=== PATIENT | female | born 1990 | race African-American/Black ===

== ENCOUNTER 2016-05-07 18:25 | Emergency (ER) | payer OTHER ==
[~2016-05-07] VITALS: Ht 157.5 cm; Wt 65.0 kg
[2016-05-07 18:26] VITALS: BP 122/79; PULSE 105; RESP 16; TEMP 100; O2SAT 100
== END 2016-05-07 21:10 | disposition left against medical advice (07) ==
LOC: NED 18:25
DX: R53.1 Weakness (principal); Z53.21 Procedure and treatment not carried out due to patient leaving prior to being seen by health care provider
CPT/HCPCS: 99281

== ENCOUNTER 2016-10-27 15:32 | Emergency (ER) | payer OTHER ==
[~2016-10-27] VITALS: Ht 177.8 cm; Wt 59.0 kg
[2016-10-27 15:34] VITALS: BP 160/85; PULSE 112; RESP 17; TEMP 98.6; O2SAT 98
--- NOTE | 2016-10-27 16:27 | PD ---
HPI Chief Complaint: Chest Pain Time Seen by Provider: 16:05 Travel History International Travel<30 days: No Contact w/Intl Traveler<30days: No Traveled to known affect area: No History of Present Illness HPI The patient was seen and examined in the presence of the nurse. This patient complains of chest pain. Location is center sternum. Clearly pleuritic in nature. When she takes a deep breath of brings the pain on for a couple seconds and then resolves. Denies fever or cough. No injury. Symptoms severity is moderate. No alleviating factors. Duration 2 days. PFSH Past Medical History Hx Anticoagulant Therapy: No Cardiovascular Problems: No Chemotherapy: No Cerebrovascular Accident: No Diabetes: No Diminished Hearing: No Respiratory: No Immunizations Current: Yes Tetanus Vaccination: < 5 Years Influenza Vaccination: Yes ?: Not : 3 Para: 2 Miscarriage: 2 Past Surgical History Section: Yes Hysterectomy: No Social History Alcohol Use: Yes (OCC) Tobacco Use: No Substance Use: No Allergies-Medications (Allergen,Severity, Reaction): Coded Allergies: acetaminophen (Verified Allergy, Intermediate, LIP SWELLING, 10/27/16) oxycodone (Verified Allergy, Intermediate, LIP SWELLING, 10/27/16) Reported Meds & Prescriptions Reported Meds & Active Scripts Active No Active Prescriptions or Reported Medications Review of Systems General / Constitutional: No: Fever Eyes: No: Visual changes HENT: No: Headaches Cardiovascular: Positive: Chest Pain or Discomfort Respiratory: No: Shortness of Breath Gastrointestinal: No: Abdominal Pain Genitourinary: No: Dysuria Musculoskeletal: No: Pain Skin: No Rash Neurologic: No: Weakness Psychiatric: No: Depression Endocrine: No: Polydipsia Hematologic/Lymphatic: No: Easy Bruising Physical Exam Narrative GENERAL: Well-nourished, well-developed patient in no apparent distress. SKIN: Focused skin assessment reveals no rash and nodules. Skin is Warm and dry. HEAD: Atraumatic. Normocephalic. EYES: Pupils equal and round. No scleral icterus. No injection or drainage. ENT: No nasal bleeding or discharge. Mucous membranes pink and moist. NECK: Trachea midline. No JVD. CARDIOVASCULAR: Regular rate and rhythm. No murmur appreciated. RESPIRATORY: No accessory muscle use. Clear to auscultation. Breath sounds equal bilaterally. GASTROINTESTINAL: Abdomen soft, non-tender, nondistended. Hepatic and splenic margins not palpable. MUSCULOSKELETAL: No obvious deformities. No clubbing. No cyanosis. No edema. No chest wall tenderness NEUROLOGICAL: Awake and alert. No obvious cranial nerve deficits. Motor grossly within normal limits. Normal speech. PSYCHIATRIC: Appropriate mood and affect; insight and judgment normal. Data Data Last Documented VS Vital Signs Date Time Temp Pulse Resp B/P (MAP) Pulse Ox O2 Delivery O2 Flow Rate FiO2 10/27/16 16:06 90 18 98 Room Air 10/27/16 15:34 98.6 160/85 (110) Orders Orders Iv Access Insert/Monitor (10/27/16 16:15) Complete Blood Count With Diff (10/27/16 16:15) Basic Metabolic Panel (Bmp) (10/27/16 16:15) Prothrombin Time / Inr (Pt) (10/27/16 16:15) Act Partial Throm Time (Ptt) (10/27/16 16:15) D-Dimer (10/27/16 16:15) Electrocardiogram (10/27/16 ) Chest, Single Ap (10/27/16 ) Ct Pulmonary Angiogram (10/27/16 ) Ed Urine Pregnancytest Poc (10/27/16 17:22) Iohexol 350 Inj (Omnipaque 350 Inj) (10/27/16 18:15) Labs Laboratory Tests Test 10/27/16 16:20 White Blood Count 8.4 TH/MM3 Red Blood Count 4.33 MIL/MM3 Hemoglobin 12.4 GM/DL Hematocrit 38.7 % Mean Corpuscular Volume 89.5 FL Mean Corpuscular Hemoglobin 28.7 PG Mean Corpuscular Hemoglobin Concent 32.0 % Red Cell Distribution Width 14.4 % Platelet Count 303 TH/MM3 Mean Platelet Volume 8.7 FL Neutrophils (%) (Auto) 67.6 % Lymphocytes (%) (Auto) 25.7 % Monocytes (%) (Auto) 5.4 % Eosinophils (%) (Auto) 0.9 % Basophils (%) (Auto) 0.4 % Neutrophils # (Auto) 5.7 TH/MM3 Lymphocytes # (Auto) 2.2 TH/MM3 Monocytes # (Auto) 0.5 TH/MM3 Eosinophils # (Auto) 0.1 TH/MM3 Basophils # (Auto) 0.0 TH/MM3 CBC Comment DIFF FINAL Differential Comment Prothrombin Time 11.4 SEC Prothromb Time International Ratio 1.0 RATIO Activated Partial Thromboplast Time 27.3 SEC D-Dimer Quantitative (PE/DVT) 0.88 MG/L FEU Blood Urea Nitrogen 6 MG/DL Creatinine 0.76 MG/DL Random Glucose 104 MG/DL Calcium Level 8.9 MG/DL Sodium Level 141 MEQ/L Potassium Level 3.4 MEQ/L Chloride Level 108 MEQ/L Carbon Dioxide Level 25.4 MEQ/L Anion Gap 8 MEQ/L Estimat Glomerular Filtration Rate 111 ML/MIN [facility] Medical Decision Making Medical Screen Exam Complete: Yes Emergency Medical Condition: Yes Medical Record Reviewed: Yes Differential Diagnosis Pleurisy, pneumonia, pneumothorax, PE Narrative Course I have reviewed the patient's electronic medical record. IV placed CBC is normal Metabolic profile is normal Coagulation studies are normal D-dimer is 0.88, not low enough to rule out PE reliably I reviewed her EKG which shows sinus rhythm but no acute ST elevation I reviewed her chest x-ray is normal This patient has a pleuritic chest pain with tachycardia and normal chest x-ray so I am needing to rule out PE. CT pulmonary angiogram was done and negative for PE. We discussed the incidental finding of possible soft tissue mass versus residual thymus. She will discuss this with primary physician. Stable for outpatient follow-up Diagnosis Primary Impression: Pleuritic chest pain Additional Impression: Sinus tachycardia Additional Instructions: The patient was advised to follow up with their physician and return if they worsen. Discuss CT scan findings with your primary physician Med/Other Pt SpecificInfo: Other Scripts No Active Prescriptions or Reported Meds Disposition: 01 DISCHARGE HOME Condition: Stable Kingsley Lopez MD Oct 27, 2016 16:27
[2016-10-27 16:37] LABS: AUTOMATED NEUTROPHIL # 5.7 TH/MM3 (1.8-7.7); BASOPHIL % 0.4 % (0.0-2.0); EOSINOPHIL # 0.1 TH/MM3 (0-0.4); EOSINOPHIL % 0.9 % (0.0-4.0); HEMATOCRIT 38.7 % (35.0-46.0); HEMO FLAGS DIFF FINAL; LYMPH % 25.7 % (9.0-44.0); LYMPHOCYTE # 2.2 TH/MM3 (1.0-4.8); MEAN CELL VOLUME 89.5 FL (80.0-100.0); MEAN CORPUSCULAR HEMOGLOBIN 28.7 PG (27.0-34.0); MONO % 5.4 % (0.0-8.0); NEUT % 67.6 % (16.0-70.0); PLATELET COUNT 303 TH/MM3 (150-450); RED BLOOD COUNT 4.33 MIL/MM3 (4.00-5.30); RED CELL DISTRIBUTION WIDTH 14.4 % (11.6-17.2); WHITE BLOOD COUNT 8.4 TH/MM3 (4.0-11.0)
[2016-10-27 16:52] LABS: APTT (PATIENT) 27.3 SEC (24.3-30.1); PROTHROMBIN TIME - PATIENT 11.4 SEC (9.8-11.6)
--- NOTE | 2016-10-27 16:53 | RADRPT ---
EXAM DATE/TIME: 10/27/2016 16:31 [facility] COMPARISON: No previous studies available for comparison. INDICATIONS : Chest pain. MEDICAL HISTORY : None. SURGICAL HISTORY : section. ENCOUNTER: Initial ACUITY: 1 day PAIN SCORE: 6/10 LOCATION: Left upper chest FINDINGS: A single view of the chest demonstrates the lungs to be symmetrically aerated without evidence of mas s, infiltrate or effusion. The cardiomediastinal contours are unremarkable. Osseous structures are intact. CONCLUSION: Normal examination. Jace Diaz Jr., MD on October 27, 2016 at 16:51 Board Certified Radiologist. This report was verified electronically.
[2016-10-27 17:06] LABS: BICARBONATE 25.4 MEQ/L (21.0-32.0); POTASSIUM 3.4 MEQ/L (3.5-5.1)
[2016-10-27] MEDS ORDERED: IOHEXOL 350 MG/ML 10 ML VIAL (for RAD DIAG) IVCONTRAST ONE (18:15)
--- NOTE | 2016-10-27 18:26 | RADRPT ---
EXAM DATE/TIME: 10/27/2016 18:05 [facility] COMPARISON: No previous studies available for comparison. INDICATIONS : Chest pain with inspiration since yesterday. IV CONTRAST: 50 cc Omnipaque 350 (iohexol) IV RADIATION DOSE: 22.97 CTDIvol (mGy) MEDICAL HISTORY : None SURGICAL HISTORY : None. ENCOUNTER: Initial ACUITY: 2 days PAIN SCALE: 8/10 LOCATION: chest TECHNIQUE: Volumetric scanning of the chest was performed using a pulmonary embolism protocol MIP images were re constructed. Using automated exposure control and adjustment of the mA and/or kV according to patien t size, radiation dose was kept as low as reasonably achievable to obtain optimal diagnostic quality images. DICOM format image data is available electronically for review and comparison. Follow-up recommendations for detected pulmonary nodules are based at a minimum on nodule size and pa tient risk factors according to Fleischner Society Guidelines. FINDINGS: PULMONARY ARTERIES: No filling defects are seen in the pulmonary arteries through the segmental level. LUNGS: There is no consolidation or pneumothorax . No concerning pulmonary nodule is visualized. PLEURAE: There is no pleural thickening or pleural effusion. MEDIASTINUM: There is soft tissue density within the anterior mediastinum measuring 4.6 x 1.2 cm. This is nonspeci fic. Residual thymus could have this appearance. Lymphoma and germ cell tumor also remain in the diff erential. Outpatient PET/CT scan may be helpful for further evaluation if clinically indicated. MUSCULOSKELETAL: Within normal limits for patient age. MISCELLANEOUS: The visualized upper abdominal organs demonstrate no acute abnormality. CONCLUSION: 1. No evidence of pulmonary embolism. 2. Soft tissue density within the anterior mediastinum measuring 4.6 x 1.2 cm. This is nonspecific. R esidual thymus could have this appearance. Lymphoma and germ cell tumor also remain in the differenti al. Outpatient PET/CT scan may be helpful for further evaluation if clinically indicated. Jaguar Brice MD on October 27, 2016 at 18:18 Board Certified Radiologist. This report was verified electronically.
--- NOTE | 2016-10-28 14:11 | EKG ---
Date Performed: 10/27/2016 Time Performed: 17:18:03 PTAGE: 26 years EKG: SINUS TACHYCARDIA NONSPECIFIC T-WAVE ABNORMALITY ABNORMAL RHYTHM ECG NO PREVIOUS TRACING DOCTOR: Shaunna Petty Interpretating Date/Time 10/28/2016 14:07:07
== END 2016-10-27 19:15 | disposition home or self-care (01) ==
LOC: NEPD 15:32
DX: R07.81 Pleurodynia (principal); R00.0 Tachycardia, unspecified; R94.31 Abnormal electrocardiogram [ECG] [EKG]
CPT/HCPCS: 71010; 71275; 80048; 84703; 85025; 85379; 85610; 85730; 93005; 99285; Q9967

== ENCOUNTER 2017-04-21 15:06 | Emergency (ER) | payer OTHER ==
[2017-04-21 15:52] VITALS: BP 135/77; PULSE 97; RESP 14; TEMP 98.9; O2SAT 99
--- NOTE | 2017-04-21 19:16 | PD ---
HPI Chief Complaint: Chest Pain Time Seen by Provider: 15:52 Travel History International Travel<30 days: No Contact w/Intl Traveler<30days: No Traveled to known affect area: No History of Present Illness HPI 27-year-old female presents to the emergency department for evaluation of chest pain with associated dizziness. Patient states this has been going on intermittently since October 2016. She has had several workups inpatient and outpatient for this but no etiology identified. She has been unable to identify any exacerbating or alleviating factors. She denies any shortness of breath. No fever or chills. No nausea, vomiting, or diarrhea. She denies any chance of . PFSH Past Medical History Hx Anticoagulant Therapy: No Cardiovascular Problems: No Chemotherapy: No Cerebrovascular Accident: No Diabetes: No Diminished Hearing: No Respiratory: No Immunizations Current: Yes : 3 Para: 2 Miscarriage: 2 Past Surgical History Section: Yes Hysterectomy: No Social History Alcohol Use: Yes (OCC) Tobacco Use: No Substance Use: No Allergies-Medications (Allergen,Severity, Reaction): Coded Allergies: acetaminophen (Verified Allergy, Intermediate, LIP SWELLING, 10/27/16) oxycodone (Verified Allergy, Intermediate, LIP SWELLING, 10/27/16) Reported Meds & Prescriptions Reported Meds & Active Scripts Active No Active Prescriptions or Reported Medications Review of Systems Except as stated in HPI: all other systems reviewed are Neg Physical Exam Narrative This is a well-nourished female patient. She appears nontoxic. She is ambulatory with a non-ataxic gait. Her vital signs are stable with a normal heart rate. Even respirations. She moves all extremities and speaks to me clearly. Data Data Last Documented VS Vital Signs Date Time Temp Pulse Resp B/P (MAP) Pulse Ox O2 Delivery O2 Flow Rate FiO2 04/21/17 15:52 98.9 97 14 135/77 (96) 99 MDM Medical Decision Making Medical Screen Exam Complete: Yes Emergency Medical Condition: Yes Medical Record Reviewed: Yes Differential Diagnosis Anxiety versus electrolyte abnormality versus chest wall pain versus pleuritic pain versus normal exam Narrative Course 27-year-old female presents to emergency department for evaluation of chest pain with associated dizziness, intermittently occurring since October 2016. She appears nontoxic. Prior to that placement, patient chooses to leave. AMA: The risks of leaving against medical advice without further evaluation treatment were discussed with the patient. These risks include cardiac dysfunction, cardiac dysrhythmia, possible heart attack, possible stroke or . The patient indicated understanding of these risks and appeared to have the capacity to make this decision. Diagnosis Primary Impression: Chest pain Scripts No Active Prescriptions or Reported Meds Disposition: 07 AGAINST MEDICAL ADVICE Condition: Stable Karla Breen JOSE ANTONIO Apr 21, 2017 19:16
== END 2017-04-21 19:06 | disposition left against medical advice (07) ==
LOC: NED 15:06
DX: R07.9 Chest pain, unspecified (principal)
CPT/HCPCS: 99281